=== PATIENT | male | born 1995 | race American Indian/Alaskan Native ===

== ENCOUNTER 2020-09-21 17:43 | Emergency (ER) | payer SELFPAY ==
[2020-09-21 17:52] VITALS: BP 118/76
--- NOTE | 2020-09-21 18:50 | Emergency Department Report ---
- General Chief Complaint: Laceration/Recheck/Suture Stated Complaint: HEAD/INJURY CUT Time Seen by Provider: 09/21/20 18:07 Source: patient Mode of arrival: Ambulatory Limitations: No Limitations - History of Present Illness Initial Comments: 25-year-old male presents to the ER today complaint of laceration to the scalp. Patient states that this occurred just prior to arrival. He states he was standing up from a bent position and when he stood up he struck his head on a panel on the side of the house. He denies any loss of consciousness. He states that he felt woozy for a brief period of time but this has since resolved. He states that he has a mild headache right now but otherwise he has no other symptoms. He is up-to-date on his tetanus. He is not on any anticoagulants or any antiplatelets. He has no significant past medical history. -: Sudden (today) Location: scalp - Related Data Allergies Allergy/AdvReac Type Severity Reaction Status Date / Time No Known Allergies Allergy Verified 09/21/20 17:49 ED Review of Systems ROS: Stated complaint: HEAD/INJURY CUT Other details as noted in HPI Comment: All other systems reviewed and negative Constitutional: denies: chills, fever ENT: denies: ear pain, throat pain Respiratory: denies: cough, shortness of breath, wheezing Cardiovascular: denies: chest pain, palpitations Endocrine: no symptoms reported Skin: other (laceration) Neurological: headache ED Past Medical Hx - Past Medical History Previous Medical History?: No - Surgical History Past Surgical History?: No - Social History Smoking Status: Never Smoker Substance Use Type: None ED Physical Exam - General Limitations: No Limitations General appearance: alert, in no apparent distress - Head Head exam: Present: normocephalic, normal inspection, other (small lac about 2cm superifical noted to superior occipital area of scalp. No active bleeding. No apparent Fb. ) - Eye Eye exam: Present: normal appearance, PERRL, EOMI Pupils: Present: normal accommodation - ENT ENT exam: Present: normal exam, mucous membranes moist - Neck Neck exam: Present: normal inspection, full ROM. Absent: tenderness - Respiratory Respiratory exam: Absent: respiratory distress - Neurological Exam Neurological exam: Present: alert, oriented X3, CN II-XII intact, normal gait - Psychiatric Psychiatric exam: Present: normal affect, normal mood - Skin Skin exam: Present: intact ED Course Vital Signs 09/21/20 17:51 Temperature 99.5 F Pulse Rate 103 H Respiratory 18 Rate Blood Pressure 118/76 O2 Sat by Pulse 98 Oximetry - Laceration /Wound Repair Head Wound Length (cm): 2 Wound's Depth, Shape: superficial Wound Explored: clean Irrigated w/ Saline (ccs): 15 Betadine Prep?: Yes Anesthesia: 1% Lidocaine Volume Anesthetic (ccs): 3 Layer Closure?: No Sterile Dressing Applied?: Yes Progress: 4 penny applied. Patient tolerated procedure well without any complications. Critical care attestation.: If time is entered above; I have spent that time in minutes in the direct care of this critically ill patient, excluding procedure time. ED Disposition Clinical Impression: Head injury, acute, without loss of consciousness, Scalp laceration Disposition: DC-01 TO HOME OR SELFCARE Is pt being admited?: No Does the pt Need Aspirin: No Condition: Stable Instructions: Head Injury, Adult, Laceration Care, Adult, [id number], Sutures, Penny, or Adhesive Wound Closure, [id number] Additional Instructions: Keep wound clean as discussed. Penny will need to be removed in about 7 to 10 days. Recommend Tylenol from [id number] as needed for pain. Return to the ER if any signs and symptoms of infection such as pus drainage, increasing redness, or swelling. Referrals: FERNANDA WHYTE MD [Staff Physician] - 7-10 days Time of Disposition: 19:25
== END 2020-09-21 19:30 | disposition home or self-care (01) ==
LOC: ED 17:43
DX: S01.01XA Laceration without foreign body of scalp, initial encounter (principal); S09.90XA Unspecified injury of head, initial encounter; X58.XXXA Exposure to other specified factors, initial encounter; Y93.89 Activity, other specified; Y92.89 Other specified places as the place of occurrence of the external cause; Y99.8 Other external cause status